=== PATIENT | female | born 1965 | race Caucasian/White ===

== ENCOUNTER 2016-12-07 16:55 | Emergency (ER) | payer OTHER ==
[2016-12-07 17:03] VITALS: BP 149/85; PULSE 90; TEMP 98; BMI 29.0
--- NOTE | 2016-12-07 18:11 | PDOC ---
History of Present Illness - General History Source: Patient Exam Limitations: No Limitations - History of Present Illness Initial Comments: 12/07/16 18:46 The patient is a 51 year old female, with a significant past medical history of HTN, HLD and pre-diabetes, who presents to the emergency department with abdominal pain, nausea and chills for the past 3 days. She reports that the pain is localized on the right lower quadrant, ranging from moderate to severe, with radiation down her right lower extremity and to her right flank. She describes her pain as a cramping sensation and notes that she feels that the area is inflamed. She notes that she has been taking Motrin for the pain, which has helped mildly relieve her symptoms. She notes that she has been having normal bowel movements. She denies vaginal or rectal bleeding. The patient denies chest pain, shortness of breath, headache and dizziness. Denies fever, vomit, diarrhea and constipation. Denies dysuria, frequency, urgency and hematuria. Allergies: None Past surgical history: Total hysterectomy but left the right ovary (4 yeats ago) Social history: No alcohol use. Former tobacco use. 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) Disorders: No HTN: No Hypercholesterolemia: No Liver Disease: No Seizures: No Thyroid Disease: No - Surgical History Abdominal Surgery: No Appendectomy: No Cardiac Surgery: No Cholecystectomy: No Lung Surgery: No Neurologic Surgery: No Orthopedic Surgery: No - Psycho/Social/Smoking Cessation Hx Anxiety: No Suicidal Ideation: No Smoking History: Current some day smoker Have you smoked in the past 12 months: Yes Number of Cigarettes Smoked Daily: 2 Information on smoking cessation initiated: No 'Breaking Loose' booklet given: 08/29/12 Hx Alcohol Use: No Drug/Substance Use Hx: No Substance Use Type: None Hx Substance Use Treatment: No <Mychal Benavidez - Last Filed: 12/07/16 20:49> - Past Medical History Allergies/Adverse Reactions: Allergies Allergy/AdvReac Type Severity Reaction Status Date / Time No Known Drug Allergies Allergy Verified 12/07/16 17:03 Home Medications: Ambulatory Orders Cholecalciferol (Vitamin D3) [Vitamin D] 400 unit PO ASDIR #0 capsule 09/14/12 Atenolol [Tenormin] 50 mg PO DAILY 12/07/16 Omeprazole 20 mg PO DAILY 12/07/16 Review of Systems - Review of Systems Able to Perform ROS?: Yes Comments:: 12/07/16 18:43 CONSTITUTIONAL: +Chills. No fever, no fatigue EYES: No visual changes ENT: No ear pain, no sore throat CARDIOVASCULAR: No chest pain, no palpitations RESPIRATORY: No cough, no SOB GI: +Abdominal pain, nausea. No vomiting, no constipation, no diarrhea GENITOURINARY: No dysuria, no frequency, no hematuria MUSKULOSKELETAL: No backpain, no joint pain, no myalgias SKIN: No rash NEURO: No headache <Virgil Ba - Last Filed: 12/07/16 18:43> *Physical Exam - Vital Signs Last Vital Signs Temp Pulse Resp BP Pulse Ox 98.0 F 90 20 149/85 99 12/07/16 17:00 12/07/16 17:00 12/07/16 17:00 12/07/16 17:00 12/07/16 17:00 - Physical Exam Comments: 12/07/16 18:45 CONSTITUTIONAL: +Obese; in no apparent distress HEAD: Normocephalic; atraumatic EYES: PERRL; EOM intact, no scleral icterus ENMT: External appears normal; normal oropharynx NECK: Supple; non-tender; no cervical lymphadenopathy CARD: Normal S1, S2; no murmurs, rubs, or gallops RESP: Normal chest excursion with respiration; breath sounds clear and equal bilaterally; no wheezes, rhonchi, or rales ABD: +Mild right upper quadrant and moderate right sided suprapubic tenderness. Soft, non-distended; no palpable organomegaly, no palpable hernias EXT: Normal ROM in all four extremities; non-tender to palpation; distal pulses intact SKIN: Warm, dry, no rash NEURO: No focal neurological deficiencies. <Virgil Ba - Last Filed: 12/07/16 18:43> - Vital Signs Last Vital Signs Temp Pulse Resp BP Pulse Ox 98.0 F 90 20 149/85 99 12/07/16 17:00 12/07/16 17:00 12/07/16 17:00 12/07/16 17:00 12/07/16 17:00 <Mychal Benavidez - Last Filed: 12/07/16 20:49> ED Treatment Course - LABORATORY CBC & Chemistry Diagram: 12/07/16 18:50 12/07/16 18:50 <Mychal Benavidez - Last Filed: 12/07/16 20:49> Medical Decision Making - Medical Decision Making 12/07/16 20:33 Patient is a well-appearing 51-year-old female who presents with atraumatic right lower pelvic pain radiating to the right leg and lower back. In the ER, patient is awake and alert, nontoxic-appearing, afebrile, with normal stable vital signs. Serial abdominal exams reveal mild to moderate right lower pelvic tenderness to deep palpation without guarding or rebound. There is no CVA tenderness bilaterally. CBC/CMP/UA within normal limit. Transvaginal ultrasound reveals a small right ovarian cyst with good ovarian flow. I do not suspect torsion at this time. Appendicitis is highly unlikely. Patient tolerates by mouth solids and liquids. Will discharge with NSAIDs with PROGRAM REVIEW DIRECTOR follow-up. <Mychal Benavidez - Last Filed: 12/07/16 20:49> *DC/Admit/Observation/Transfer - Attestations Scribe Attestion: 12/07/16 18:46 Documentation prepared by Virgil Ba, acting as paramedical aide for Mychal Benavidez MD <Virgil Ba - Last Filed: 12/07/16 18:43> - Attestations Physician Attestion: 12/07/16 20:33 The documentation was prepared by the scribe under my direct supervision. I have reviewed the documentation which correctly represents the findings, medical decision-making and critical action taken by me. <Mychal Benavidez - Last Filed: 12/07/16 20:49> Diagnosis at time of Disposition: Right lower quadrant abdominal pain - Discharge Dispostion Disposition: HOME Condition at time of disposition: Stable - Referrals Referrals: Annetta Daugherty MD [Primary Care Provider] - - Patient Instructions Printed Discharge Instructions: DI for Abdominal Pain-Adult Print Language: BELARUSIAN
[2016-12-07] MEDS ORDERED: KETOROLAC TROMETHAMINE 30 MG/1 ML VIAL IVPUSH ONE (18:33)
[2016-12-07] MEDS ORDERED: KETOROLAC TROMETHAMINE 30 MG/1 ML VIAL ONE (18:40)
[2016-12-07 19:06] LABS: BASOPHIL 0.7 % (0-2.0); EOSINOPHIL 1.8 % (0-4.5); MCHC 33.9 g/dl (32.0-36.0); MEAN CELL VOLUME 85.7 fl (80-96); MEAN PLT VOLUME 9.2 fl (7.5-11.1); NEUTROPHILS 42.3 % (42.8-82.8); PLATELET COUNT 196 K/MM3 (134-434); RDW 13.5 % (11.6-15.6); WHITE BLOOD COUNT 8.2 K/mm3 (4.0-10.0)
[2016-12-07 19:13] LABS: URINE APPEARANCE CLEAR; URINE BILIRUBIN NEGATIVE (NEGATIVE); URINE COLOR LTYELLOW; URINE GLUCOSE (UA) NEGATIVE (NEGATIVE); URINE KETONE NEGATIVE (NEGATIVE); URINE LEUK ESTERASE NEGATIVE (NEGATIVE); URINE NITRITE NEGATIVE (NEGATIVE); URINE PROTEIN NEGATIVE (NEGATIVE); URINE UROBILINOGEN NEGATIVE E.U./dl (0.2-1.0)
[2016-12-07 19:18] LABS: URINE BLOOD 1+ (NEGATIVE)
[2016-12-07 19:24] LABS: URINE MUCUS RARE; URINE RBC 1 /hpf (0-3)
[2016-12-07 19:27] LABS: ALBUMIN 3.6 g/dl (3.4-5.0); ALK PHOS 137 U/L (45-117); ANION GAP 7 (8-16); BILIRUBIN,TOTAL 0.2 mg/dL (0.2-1.0); CO2 30 mmol/L (21-32); CREATININE 0.6 mg/dL (0.55-1.02); GLUCOSE,RANDOM 83 mg/dL (74-106); SGPT/ALT 19 U/L (12-78)
[2016-12-07 19:36] LABS: SGOT/AST 17 U/L (15-37)
--- NOTE | 2016-12-10 14:58 | PDOC ---
Patient Follow-up (Call Back) - Post ED Follow - Up Condition at time of discharge: Stable Disposition at time of original discharge: HOME Reason for Call Back: Abnwl. Microbiology Signs/Symptoms Improved: Yes - Disposition Rx Needed: Yes Additional Instructions/Notes: spoke with the patient and informed her i send an rx for keflex to her pharmacy
== END 2016-12-07 20:59 | disposition home or self-care (01) ==
LOC: JER 16:55
PROC: 3E0333Z Introduction of Anti-inflammatory into Peripheral Vein, Percutaneous Approach (ICD-10-PCS; principal; 2016-12-07)
DX: R10.31 Right lower quadrant pain (principal); I10 Essential (primary) hypertension; E78.5 Hyperlipidemia, unspecified; E78.00 Pure hypercholesterolemia, unspecified; R73.03 Prediabetes
CPT/HCPCS: 36415; 76856-TC; 80053; 81003; 81015; 84703; 85025; 87086; 87186; 99283-25

== ENCOUNTER 2017-01-17 10:00 | Day surgery (SDC) | payer OTHER ==
[2017-01-16 14:16] VITALS: BMI 29.1
[2017-01-17] MEDS ORDERED: PROPOFOL 20 ML ONE (11:52)
[2017-01-17 13:03] VITALS: TEMP 97.8
[2017-01-17 13:24] VITALS: PULSE 64
[2017-01-17 15:09] VITALS: BP 135/82
--- NOTE | 2017-01-18 13:47 | PATH ---
Surgical Pathology Report Patient Name: STARR WEINSTEIN [facility]. Rec. #: [id number] /Age/Gender: 1965 (Age: 51) / F Account: [id number] Location: U-ENDOSCOPY Taken: 01/17/2017 Received: 01/17/2017 Reported: 01/18/2017 Physicians: Jaswinder Desouza M.D. Specimen(s) Received A: BX POLYP BETWEEN 1ST & 2ND PORTION DUODENUM B: BX NODULE MUCOSA OF BODY Clinical History Persistent epigastric pain Nodular mucosa with atrophic areas, polyp of first and second portion of duodenum Final Diagnosis A. DUODENUM, POLYP BETWEEN FIRST AND SECOND PORTIONS, BIOPSY: FOCALLY POLYPOID FRAGMENTS OF DUODENAL MUCOSA WITH CHRONIC INFLAMMATION AND KAYY'S GLANDS HYPERPLASIA. NO DYSPLASIA/ADENOMA IDENTIFIED. NO HISTOLOGIC EVIDENCE OF GLUTEN SENSITIVE ENTEROPATHY (CELIAC DISEASE). B. STOMACH, BODY, NODULAR MUCOSA, BIOPSY: GASTRIC OXYNTIC MUCOSA WITH MODERATE CHRONIC GASTRITIS WITH INTESTINAL METAPLASIA. NEGATIVE FOR DYSPLASIA. IMMUNOSTAIN FOR H. PYLORI IS NEGATIVE FOR ORGANISMS. SMALL FRAGMENT OF DUODENAL APPEARING MUCOSA WITH CHRONIC INFLAMMATION. Electronically Signed Eloy Quijano M.D. Gross Description A. Received in formalin, labeled "polyp between second and third portion of duodenum" are 3 mirza, irregular portions of soft tissue ranging from 0.2-0.4 cm in greatest dimension. The specimens are submitted in toto in one cassette. B. Received in formalin, labeled "biopsy nodular mucosa of body" are 5 mirza, irregular portions of soft tissue ranging from 0.2-0.7 cm in greatest dimension. The specimens are submitted in toto in one cassette. 01/17/2017 [facility]01/17/2017
== END 2017-01-17 14:10 | disposition home or self-care (01) ==
LOC: JASU-ENDO 10:00
PROVIDERS: ATTEND Internal Medicine Gastroenterology
PROC: 0DB98ZX Excision of Duodenum, Via Natural or Artificial Opening Endoscopic, Diagnostic (ICD-10-PCS; principal; 2017-01-17 10:30)
DX: K31.7 Polyp of stomach and duodenum (principal); K31.89 Other diseases of stomach and duodenum; R10.13 Epigastric pain
CPT/HCPCS: 88305-TC; 88342-TC

== ENCOUNTER 2017-02-21 09:50 | Day surgery (SDC) | payer OTHER ==
[2017-02-20 14:37] VITALS: BMI 29.8
[2017-02-21 13:02] VITALS: TEMP 97.6
[2017-02-21 13:33] VITALS: BP 130/74; PULSE 70
--- NOTE | 2017-02-22 13:41 | PATH ---
Surgical Pathology Report Patient Name: STARR WEINSTEIN [facility]. Rec. #: [id number] /Age/Gender: 1965 (Age: 52) / F Account: [id number] Location: U-ENDOSCOPY Taken: 02/21/2017 Received: 02/21/2017 Reported: 02/22/2017 Physicians: Jaswinder Desouza M.D. Specimen(s) Received A: BX SIGMOID POLYP B: BX PROXIMAL RECTAL POLYP Clinical History Constipation, rectal bleeding Diverticulosis, polyps, poor prep Final Diagnosis A. COLON, SIGMOID, POLYP, BIOPSY: HYPERPLASTIC POLYP. B. RECTUM, PROXIMAL, POLYP, BIOPSY: HYPERPLASTIC POLYP. Electronically Signed Eloy Quijano M.D. Gross Description A. Received in formalin, labeled "biopsy sigmoid polyp" is a mirza, irregular portion of soft tissue measuring 0.3 cm in greatest dimension. The specimen is submitted in toto in one cassette. B. Received in formalin, labeled "biopsy proximal rectal polyp" is a mirza, irregular portion of soft tissue measuring 0.3 cm in greatest dimension. The specimen is submitted in toto in one cassette. /02/21/2017 [place]/21/2017
== END 2017-02-21 14:01 | disposition home or self-care (01) ==
LOC: JASU-ENDO 09:50
PROVIDERS: ATTEND Internal Medicine Gastroenterology
PROC: 0DBN8ZX Excision of Sigmoid Colon, Via Natural or Artificial Opening Endoscopic, Diagnostic (ICD-10-PCS; 2017-02-21)
PROC: 0DBP8ZX Excision of Rectum, Via Natural or Artificial Opening Endoscopic, Diagnostic (ICD-10-PCS; principal; 2017-02-21 11:00)
DX: K62.5 Hemorrhage of anus and rectum (principal); K57.30 Diverticulosis of large intestine without perforation or abscess without bleeding; D12.5 Benign neoplasm of sigmoid colon; K62.1 Rectal polyp
CPT/HCPCS: 88305-TC; 88342-TC